=== PATIENT | female | born 1990 | race Caucasian/White ===

== ENCOUNTER → 2016-08-21 | Outpatient (CLI) | payer OTHER ==
[2016-08-21 12:20] LABS: BASO % 0.2 %; BASO ABS # 0.02 K/uL (0-0.2); COMPLETE YES; EOS % 1.8 %; HEMATOCRIT 40.1 % (37-47); IG% 0.3 %; LYMPH % 31.6 %; LYMPH ABS # 2.91 K/uL (1.2-3.4); MEAN CELL VOLUME 89.9 fL (80-100); MEAN CORPUSCULAR HEMOGLOBIN 31.2 pg (25-34); MEAN CORPUSCULAR HGB CONC 34.7 g/dl (32-36); MEAN PLATELET VOLUME 10.2 fL (7.4-10.4); MONO % 9.7 %; NEUT % 56.4 %; PLATELET COUNT 409 K/uL (130-400); RED BLOOD COUNT 4.46 M/uL (4.2-5.4); WHITE BLOOD COUNT 9.22 K/uL (4.8-10.8)
[2016-08-21 12:28] LABS: BLOOD UREA NITROGEN 11 mg/dl (7-18); CREATININE 0.74 mg/dl (0.60-1.20)
[2016-08-21 12:45] LABS: PREG INTERNAL NEGATIVE QC NEG CLEAR BACKGROUND; PREG INTERNAL POSITIVE QC POS CONTROL LINE
== END | disposition home or self-care (01) ==
LOC: C.LAB1850 11:08
PROVIDERS: ATTEND Obstetrics & Gynecology
DX: R10.9 Unspecified abdominal pain (principal); A74.9 Chlamydial infection, unspecified

== ENCOUNTER → 2016-08-21 | Outpatient (CLI) | payer OTHER ==
[2016-08-21 15:03] LABS: URINE APPEARANCE TURBID (CLEAR); URINE BILIRUBIN NEG (NEG); URINE COLOR DK YELLOW; URINE EPITHELIAL CELL AUTO >30 /lpf (0-5); URINE NITRITE NEG (NEG); URINE SPECIFIC GRAVITY 1.027 (1.000-1.030); UROBILINOGEN NEG (NEG)
[2016-08-21 15:09] LABS: MANUAL MICROSCOPIC REQUIRED? NO; REVIEW REQ? YES
[2016-08-24 01:32] LABS: CHLAMYDIA TRACH RNA*** NOT DETECTED (NOT DETECTED); GC (NEIS GONORRHOEAE)RNA** NOT DETECTED (NOT DETECTED)
== END | disposition home or self-care (01) ==
LOC: C.LABSPEC 13:58
PROVIDERS: ATTEND Obstetrics & Gynecology
DX: N12 Tubulo-interstitial nephritis, not specified as acute or chronic (principal); A74.9 Chlamydial infection, unspecified

== ENCOUNTER → 2016-08-24 | Outpatient (CLI) | payer OTHER ==
--- NOTE | 2016-08-24 14:54 | DIAGNOSTIC IMAGING REPORT ---
RENAL ULTRASOUND CLINICAL HISTORY: Abdominal pain. Pyelonephritis. COMPARISON STUDY: CT of the abdomen and pelvis February 22, 2015. TECHNIQUE: Sonography of the kidneys and the urinary bladder was performed. FINDINGS: The right kidney measures 12.6 x 4.5 x 4.8 cm and the left measures 11.9 x 4.4 x 5.1 cm. No calculi or masses were identified by sonography. Renal echogenicity, size and cortical thickness are normal. There is mild prominence of the right collecting system. No fluid collection is identified to suggest an abscess by sonography. Both ureteral jets were identified. IMPRESSION: 1. Mild right-sided collecting system dilatation. 2. Normal renal echogenicity, size and cortical thickness. No renal abscess. Electronically signed by: Conor Hayes M.D. 08/24/2016 2:53 PM Dictated Date/Time: 08/24/2016 2:51 PM
== END | disposition home or self-care (01) ==
LOC: C.ULTRBC 13:51
PROVIDERS: ATTEND Obstetrics & Gynecology
DX: R10.9 Unspecified abdominal pain (principal); N12 Tubulo-interstitial nephritis, not specified as acute or chronic

== ENCOUNTER → 2016-11-01 | Outpatient (CLI) | payer OTHER ==
[2016-11-05 14:52] LABS: CHLAMYDIA TRACH RNA*** NOT DETECTED (NOT DETECTED); GC (NEIS GONORRHOEAE)RNA** NOT DETECTED (NOT DETECTED)
== END | disposition home or self-care (01) ==
LOC: C.LABSPEC 14:00
PROVIDERS: ATTEND Physician Assistant
DX: A74.9 Chlamydial infection, unspecified (principal)

== ENCOUNTER → 2016-11-21 | Outpatient (CLI) | payer OTHER ==
[2016-11-23 13:59] LABS: CHLAMYDIA TRACH RNA*** NOT DETECTED (NOT DETECTED); GC (NEIS GONORRHOEAE)RNA** NOT DETECTED (NOT DETECTED)
== END | disposition home or self-care (01) ==
LOC: C.LAB1850 09:18
PROVIDERS: ATTEND Physician Assistant
DX: Z11.3 Encounter for screening for infections with a predominantly sexual mode of transmission (principal)

== ENCOUNTER → 2016-11-21 | Outpatient (CLI) | payer OTHER | END | disposition home or self-care (01) | LOC: C.PAPS 11:52 | PROVIDERS: ATTEND Physician Assistant | DX: Z12.4 Encounter for screening for malignant neoplasm of cervix (principal) ==

== ENCOUNTER → 2016-12-03 | Outpatient (CLI) | payer OTHER | END | disposition home or self-care (01) | LOC: C.LAB1850 15:38 | PROVIDERS: ATTEND Registered Nurse | DX: E03.9 Hypothyroidism, unspecified (principal) ==

== ENCOUNTER → 2017-10-02 | Outpatient (CLI) | payer OTHER ==
[2017-10-02 14:22] LABS: HEP C IGG 13 YRS+OLDER_RFLX NEG (NEG)
[2017-10-03 01:27] LABS: RAPID PLASMA REAGIN NONREACTIVE (NONREACT)
== END | disposition home or self-care (01) ==
LOC: C.LAB1850 11:20
PROVIDERS: ATTEND Physician Assistant
DX: N92.6 Irregular menstruation, unspecified (principal); Z11.3 Encounter for screening for infections with a predominantly sexual mode of transmission

== ENCOUNTER → 2017-11-15 | Outpatient (CLI) | payer OTHER ==
[2017-11-15 14:04] LABS: BASO % 0.3 %; BASO ABS # 0.04 K/uL (0-0.2); EOS % 4.4 %; EOS ABS # 0.54 K/uL (0-0.5); HEMATOCRIT 39.4 % (37-47); HEMOGLOBIN 13.5 g/dL (12.0-16.0); IG# 0.05 K/uL (0.00-0.02); LYMPH % 27.9 %; LYMPH ABS # 3.46 K/uL (1.2-3.4); MEAN CELL VOLUME 90.8 fL (80-100); MEAN CORPUSCULAR HEMOGLOBIN 31.1 pg (25-34); MEAN CORPUSCULAR HGB CONC 34.3 g/dl (32-36); MONO % 7.9 %; MONO ABS # 0.98 K/uL (0.11-0.59); NEUT % 59.1 %; NEUT ABS # 7.34 K/uL (1.4-6.5); PLATELET COUNT 471 K/uL (130-400); RED CELL DISTRIBUTION WIDTH CV 13.3 % (11.5-14.5); RED CELL DISTRIBUTION WIDTH SD 44.2 fL (36.4-46.3); WHITE BLOOD COUNT 12.41 K/uL (4.8-10.8)
[2017-11-15 14:28] LABS: ALBUMIN 3.7 gm/dl (3.4-5.0); ALT/SGPT 16 U/L (12-78); AST/SGOT 11 U/L (15-37); BLOOD UREA NITROGEN 11 mg/dl (7-18); CALCIUM 8.9 mg/dl (8.5-10.1); CARBON DIOXIDE 23 mmol/L (21-32); CREATININE 0.79 mg/dl (0.60-1.20); GLUCOSE 93 mg/dl (70-99); POTASSIUM 3.5 mmol/L (3.5-5.1); SODIUM 138 mmol/L (136-145)
[2017-11-15 14:39] LABS: ALKALINE PHOSPHATASE 46 U/L (45-117); TOTAL PROTEIN 7.6 gm/dl (6.4-8.2)
== END | disposition home or self-care (01) ==
LOC: C.LAB1850 12:43
PROVIDERS: ATTEND Internal Medicine
DX: E03.9 Hypothyroidism, unspecified (principal); D47.3 Essential (hemorrhagic) thrombocythemia; F32.9 Major depressive disorder, single episode, unspecified; G47.9 Sleep disorder, unspecified

== ENCOUNTER → 2017-11-27 | Outpatient (CLI) | payer OTHER ==
[~2017-11-27] MED LIST: CHOL500021 PO; CYAN500T13 PO; ERGO500037 PO; IBUP-1428 PO; LEVO50TA6 PO; NITR-5 PO; ONDA4TAB46 PO; PRT/20 PO; SERT50TA PO
== END | disposition home or self-care (01) ==
LOC: C.LABSPEC 15:47
PROVIDERS: ATTEND Physician Assistant
DX: N94.10 Unspecified dyspareunia (principal)

== ENCOUNTER → 2017-11-28 | Outpatient (CLI) | payer OTHER | END | disposition home or self-care (01) | LOC: C.LAB1850 16:10 | PROVIDERS: ATTEND Physician Assistant | DX: R39.9 Unspecified symptoms and signs involving the genitourinary system (principal) ==

== ENCOUNTER → 2017-12-12 | Day surgery (SDC) | payer OTHER ==
[2017-12-05 09:10] VITALS: Ht 160 cm; Wt 93.2 kg
[~2017-12-12] VITALS: Ht 160 cm; Wt 93.2 kg
[~2017-12-12] MED LIST changes: +LIDOCAINE HCL 2% 2 ML VIAL (20MG/ML) ONE; +PROPOFOL IV EMULSION 10 MG/ML 20 ML VIAL ONE; +SODIUM CHLORIDE 0.9% 500ML 500 ML IV ONE
--- NOTE | 2017-12-12 12:29 | Endo History and Physical ---
History & Physical Date of Service: December 12, 2017. Chief Complaint: Diarrhea Referring Physician: Dr Rice History of Present Illness 27 yo CF who presents for colonoscopy secondary to diarrhea. Past Surgical History Hx Cardiac Surgery: No Hx Internal Defibrillator: No Hx Pacemaker: No Hx Abdominal Surgery: No Hx of Implantable Prosthesis: No Hx Cancer Surgery: No Hx Thoracic Surgery: No Hx Orthopedic: No Hx Urinary Tract Surgery: No Family History None Social History Smoking Status: Current Every Day Smoker Hx Substance Use: No Hx Alcohol Use: No Allergies Coded Allergies: Oxycodone (Verified Adverse Reaction, Unknown, Nausea and constipation., ) Reported by PT. Current Medications Reported Home Medications Medications Dose Route/Sig Max Daily Dose Days Date Category Vitamin D3 (Cholecalciferol) 5,000 Unit Chw 1 Tab PO DAILY 12/05/17 Reported Vitamin D 45158 Unit (Ergocalciferol) 50,000 Unit Cap 1 Cap PO WK 28 12/05/17 Reported Zoloft (Sertraline HCl) 50 Mg Tab 1 Tab PO HS 30 12/05/17 Reported Protonix (Pantoprazole Sodium) 20 Mg Tab 20 Mg PO DAILY 12/05/17 Reported Zofran (Ondansetron HCl) 4 Mg Tab 4 Mg PO Q8 PRN 12/05/17 Reported Macrobid (Nitrofurantoin Macrocrystals) 100 Mg Cap 100 Mg PO BID 12/05/17 Reported Levothyroxine Sodium 50 Mcg Tab 1 Tab PO DAILY 30 12/05/17 Reported Motrin (Ibuprofen) 800 Mg Tab 800 Mg PO Q12 PRN 12/05/17 Reported Vitamin B12 500MCG (Cyanocobalamin) 500 Mcg Tab 1,000 Mcg PO DAILY 12/05/17 Reported Vital Signs Weight (Kilograms): 93.18 Height (Feet): 5 Height (Inches): 3 Date Time Temp Pulse Resp B/P (MAP) Pulse Ox O2 Delivery O2 Flow Rate FiO2 12/12/17 12:21 36.6 80 18 107/79 (88) 94 Room Air Physical Exam General Appearance: WD/WN, no apparent distress Respiratory/Chest: Auscultation: breath sounds normal Cardiovascular: Heart Auscultation: RRR Abdomen: Bowel Sounds: normal Inspection & Palpation: soft, non-distended, no tenderness, guarding & rebound Assessment and Plan Assessment: 27 yo CF who presents for colonoscopy secondary to diarrhea. Plan: Proceed with colonoscopy.
--- NOTE | 2017-12-12 12:56 | Discharge Instructions ---
Endoscopy Patient Instructions Date / Procedure(s) Performed December 12, 2017. Colonoscopy Allergy Information Coded Allergies: Oxycodone (Verified Adverse Reaction, Unknown, Nausea and constipation., ) Reported by PT. Discharge Date / Findings December 12, 2017. Random colon biopsies Stool studies collected Colon polyp Internal hemorrhoids Medication Instructions OK to resume all medications today as prescribed Reported Home Medications Medications Dose Route/Sig Max Daily Dose Days Date Category Vitamin D3 (Cholecalciferol) 5,000 Unit Chw 1 Tab PO DAILY 12/05/17 Reported Vitamin D 72766 Unit (Ergocalciferol) 50,000 Unit Cap 1 Cap PO WK 28 12/05/17 Reported Zoloft (Sertraline HCl) 50 Mg Tab 1 Tab PO HS 30 12/05/17 Reported Protonix (Pantoprazole Sodium) 20 Mg Tab 20 Mg PO DAILY 12/05/17 Reported Zofran (Ondansetron HCl) 4 Mg Tab 4 Mg PO Q8 PRN 12/05/17 Reported Macrobid (Nitrofurantoin Macrocrystals) 100 Mg Cap 100 Mg PO BID 12/05/17 Reported Levothyroxine Sodium 50 Mcg Tab 1 Tab PO DAILY 30 12/05/17 Reported Motrin (Ibuprofen) 800 Mg Tab 800 Mg PO Q12 PRN 12/05/17 Reported Vitamin B12 500MCG (Cyanocobalamin) 500 Mcg Tab 1,000 Mcg PO DAILY 12/05/17 Reported Provider Instructions Activity Restrictions - No exercising or heavy lifting for 24 hours. - Do not drink alcohol the day of the procedure. - Do not drive a car or operate machinery until the day after the procedure. - Do not make any important decisions or sign important papers in 24 hours after the procedure. Following Day: - Return to full activity which may include returning to work/school. Diet Start your diet with liquids and light foods (jello, soup, juice, toast). Then eat your usual diet if not nauseated. Treatment For Common After Affects For mild abdominal pain, bloating, or excessive gas: - Rest - Eat lightly - Lie on right side Follow-Up Information Follow-up with Dr Rice as scheduled Anesthesia Information What You Should Know You have had a procedure that required some medicine to reduce anxiety and discomfort. This treatment is called moderate sedation. After receiving the treatment, you may be sleepy, but you will be able to breathe on your own. The effects of the treatment may last for several hours. Follow these instructions along with Activity/Diet recommendations noted above: * Do NOT do anything where dizziness or clumsiness would be dangerous. * Rest quietly at home today, then you can be up and about tomorrow. * Have a responsible person stay with you the rest of today. * You may have had an I.V. today. If so, you may take the dressing off later today. Recommendations Call your doctor if: * Trouble breathing * Continuous vomiting for more than 24 hours * Temperature above 101 degrees * Severe abdominal pain or bloating * Pain not relieved by pain medicine ordered * There is increased drainage or redness from any incision * A large amount of rectal bleeding greater than 2-3 tablespoons. (If you had a polyp/s removed or have hemorrhoids, a small amount of blood - from the rectum is to be expected.) * You have any unanswered questions or concerns. IN THE EVENT OF A SERIOUS EMERGENCY, GO TO THE NEAREST EMERGENCY ROOM Your discharge instructions were prepared by provider Olegario Hillman. Patient Instructions Signature Page Jaimie House Patient (or Guardian) Signature/Date: I have read and understand the instructions given to me by my caregivers. Caregiver/RN/Doctor Signature/Date: The above-named patient and/or guardian has received patient instructions on this date. + Original Patient Signature Page (only) stays with chart. Please make copy for patient.
--- NOTE | 2017-12-12 13:03 | GI REPORT ---
Patient Name: Jaimie House Procedure Date: 12/12/2017 12:37 PM Date of : 1990 Admit Type: Outpatient Age: 27 Gender: Female Attending MD: Olegario Hillman DO Procedure: Colonoscopy Providers: Olegario Hillman DO Referring MD: Nanette Roblero Indications: Chronic diarrhea Medicines: Monitored Anesthesia Care Complications: No immediate complications. Estimated Blood Loss: Estimated blood loss: none. Procedure: Pre-Anesthesia Assessment: - Prior to the procedure, a History and Physical was performed, and patient medications and allergies were reviewed. The patient's tolerance of previous anesthesia was also reviewed. The risks and benefits of the procedure and the sedation options and risks were discussed with the patient. All questions were answered, and informed consent was obtained. Prior Anticoagulants: The patient has taken no previous anticoagulant or antiplatelet agents. ASA Grade Assessment: II - A patient with mild systemic disease. After reviewing the risks and benefits, the patient was deemed in satisfactory condition to undergo the procedure. After I obtained informed consent, the scope was passed under direct vision. Throughout the procedure, the patient's blood pressure, pulse, and oxygen saturations were monitored continuously. The Scope was introduced through the anus and advanced to the terminal ileum. The colonoscopy was performed without difficulty. The patient tolerated the procedure well. The quality of the bowel preparation was good. The terminal ileum, ileocecal valve, appendiceal orifice, and rectum were photographed. Findings: The perianal and digital rectal examinations were normal. A 5 mm polyp was found in the sigmoid colon. The polyp was sessile. The polyp was removed with a hot snare. Resection and retrieval were complete. Several random biopsies were obtained with cold forceps for histology in the entire colon. Fluid aspiration for stool studies was performed in the entire colon. Non-bleeding internal hemorrhoids were found during retroflexion. The hemorrhoids were small. Impression: - One 5 mm polyp in the sigmoid colon, removed with a hot snare. Resected and retrieved. - Non-bleeding internal hemorrhoids. - Several random biopsies were obtained in the entire colon. - Fluid aspiration was performed. Recommendation: - Resume previous diet. - Continue present medications. - Repeat colonoscopy for surveillance based on pathology results. - Return to primary care physician as previously scheduled. Olegario Hillman DO 12/12/2017 1:02:40 PM This report has been signed electronically. Note Initiated On: 12/12/2017 12:37 PM Number of Addenda: 0 I attest to the content of the Intraoperative Record and orders documented therein, exceptions below {[id number]}
--- NOTE | 2017-12-12 13:26 | Anesthesiology Progress Note ---
Anesthesia Post Op Note Date & Time December 12, 2017 at 13:26 Vital Signs Vital Signs Past 12 Hours Date Time Temp Pulse Resp B/P (MAP) Pulse Ox O2 Delivery O2 Flow Rate FiO2 12/12/17 13:13 85 18 101/70 (80) 94 Room Air 12/12/17 12:58 79 14 91/54 (66) 98 Room Air 12/12/17 12:21 36.6 80 18 107/79 (88) 94 Room Air Notes Mental Status: alert / awake / arousable, participated in evaluation Pt Amnestic to Procedure: Yes Nausea / Vomiting: adequately controlled Pain: adequately controlled Airway Patency, RR, SpO2: stable & adequate BP & HR: stable & adequate Hydration State: stable & adequate Anesthetic Complications: no major complications apparent
[2017-12-12 13:28] VITALS: BP 119/73; PULSE 77; TEMP 36.6; O2SAT 100
== END | disposition home or self-care (01) ==
LOC: C.GI 11:39
PROVIDERS: ATTEND Internal Medicine
DX: R19.7 Diarrhea, unspecified (principal); D12.5 Benign neoplasm of sigmoid colon; K64.8 Other hemorrhoids; F17.200 Nicotine dependence, unspecified, uncomplicated; Z88.5 Allergy status to narcotic agent

== ENCOUNTER → 2018-03-04 | Outpatient (CLI) | payer OTHER ==
[~2018-03-04] MED LIST changes: +ASPI-391 PO; +CEFD1CAP14 PO; -LIDOCAINE HCL 2% 2 ML VIAL (20MG/ML) ONE; +LYSI500T34 PO; +MEDR1INJ3 IM; -NITR-5 PO; +POTASSIUM PO; -PROPOFOL IV EMULSION 10 MG/ML 20 ML VIAL ONE; +RIZA10TA18 PO; -SODIUM CHLORIDE 0.9% 500ML 500 ML IV ONE; +TOPI50TA16 PO; +VITACAP26 PO; +ZINCCAP5 PO
--- NOTE | 2018-03-04 18:26 | DIAGNOSTIC IMAGING REPORT ---
CHEST 2 VIEWS ROUTINE HISTORY: 27 years-old Female R05 Productive [id number] acute productive cough with fever COMPARISON: Chest radiograph 03/03/2015 TECHNIQUE: PA and lateral views of the chest FINDINGS: Cardiomediastinal and hilar silhouettes are within normal limits. There is no pneumothorax, pleural effusion, focal airspace consolidation or overt pulmonary edema. Ventricular peritoneal shunt catheter is noted projecting over the right neck, right chest and right upper abdomen with visualized portions of the catheter appearing to be intact. The bones of the chest appear unremarkable. IMPRESSION: No acute process. The above report was generated using voice recognition software. It may contain grammatical, syntax or spelling errors. Electronically signed by: Estuardo Bhatti M.D. 03/04/2018 6:24 PM Dictated Date/Time: 03/04/2018 6:23 PM
== END | disposition home or self-care (01) ==
LOC: C.RAD1850 16:35
PROVIDERS: ATTEND Internal Medicine
DX: R50.9 Fever, unspecified (principal); R05 Cough

== ENCOUNTER → 2018-03-17 | Day surgery (SDC) | payer OTHER ==
[2018-03-11 10:38] VITALS: BMI 35.0
[~2018-03-17] VITALS: Ht 160 cm; Wt 91.8 kg
[~2018-03-17] MED LIST changes: +LIDOCAINE HCL 2% 2 ML VIAL (20MG/ML) ONE; +PROPOFOL IV EMULSION 10 MG/ML 20 ML VIAL ONE; +SODIUM CHLORIDE 0.9% 500ML 500 ML IV ONE
--- NOTE | 2018-03-17 11:05 | Endo History and Physical ---
History & Physical Date of Service: Mar 17, 2018. Chief Complaint: Diarrhea and Abdominal pain Referring Physician: Dr. Rice History of Present Illness 27 yo CF who presents for colonoscopy secondary to diarrhea and abdominal pain. Past Surgical History Hx Cardiac Surgery: No Hx Internal Defibrillator: No Hx Pacemaker: No Hx Abdominal Surgery: No Hx of Implantable Prosthesis: No Hx Post-Op Nausea and Vomiting: No Hx Cancer Surgery: No Hx Thoracic Surgery: No Hx Orthopedic: No Hx Urinary Tract Surgery: No Family History None Social History Smoking Status: Current Every Day Smoker Hx Substance Use: No Hx Alcohol Use: No Allergies Coded Allergies: Oxycodone (Verified Adverse Reaction, Unknown, Nausea and constipation., ) Reported by PT. Current Medications Reported Home Medications Medications Dose Route/Sig Max Daily Dose Days Date Category Dose Instructions L-Lysine (Lysine Hcl) 500 Mg Tab 500 Mg PO QAM 03/11/18 Reported [Potassium ] 99 Mg PO QAM 03/11/18 Reported Vitamin C (Vitamins C & E) 1 Cap Cap 1 Tab PO QAM 03/11/18 Reported Zn-50 (Zinc Gluconate) 50 Mg Cap 50 Mg PO QAM 03/11/18 Reported Maxalt (Rizatriptan Benzoate) 10 Mg Tab 10 Mg PO UD PRN 03/11/18 Reported Zofran (Ondansetron HCl) 4 Mg Tab 4 Mg PO Q8H PRN 03/11/18 Reported Omnicef (Cefdinir) 300 Mg Cap 300 Mg PO Q12H 03/11/18 Reported Topamax (Topiramate) 50 Mg Tab 50 Mg PO HS 03/11/18 Reported Excedrin Extra Strength (Whwgtxd-Yecvychmbgurq-Awnejmia) 1 Tab Tab 1 Tab PO Q4 PRN 01/06/18 Reported Depo-Provera Contraceptiv (Medroxyprogesterone Acetate (C) 150 Mg/Ml Inj 150 Mg IM Q3MO 01/06/18 Reported Vitamin D3 (Cholecalciferol) 5,000 Unit Chw 5,000 Units PO QAM 12/05/17 Reported Vitamin D 54154 Unit (Ergocalciferol) 50,000 Unit Cap 50,000 Units PO WK 28 12/05/17 Reported THURSDAYS Zoloft (Sertraline HCl) 50 Mg Tab 75 Mg PO HS 30 12/05/17 Reported Protonix (Pantoprazole Sodium) 20 Mg Tab 20 Mg PO QAM 12/05/17 Reported Levothyroxine Sodium 50 Mcg Tab 50 Mcg PO QAM 30 12/05/17 Reported Motrin (Ibuprofen) 800 Mg Tab 800 Mg PO Q12 PRN 12/05/17 Reported Vitamin B12 500MCG (Cyanocobalamin) 500 Mcg Tab 1,000 Mcg PO QAM 12/05/17 Reported Vital Signs Weight (Kilograms): 91.82 Height (Feet): 5 Height (Inches): 3 Physical Exam General Appearance: WD/WN, no apparent distress Respiratory/Chest: Auscultation: breath sounds normal Cardiovascular: Heart Auscultation: RRR Abdomen: Bowel Sounds: normal Inspection & Palpation: soft, non-distended, no tenderness, guarding & rebound Assessment and Plan Assessment: 27 yo CF who presents for colonoscopy secondary to diarrhea and abdominal pain. Plan: Proceed with colonoscopy.
[2018-03-17 11:16] VITALS: Ht 160 cm; Wt 91.8 kg
--- NOTE | 2018-03-17 12:12 | Discharge Instructions ---
Endoscopy Patient Instructions Date / Procedure(s) Performed Mar 17, 2018. Colonoscopy Allergy Information Coded Allergies: Oxycodone (Verified Adverse Reaction, Unknown, Nausea and constipation., ) Reported by PT. Discharge Date / Findings Mar 17, 2018. Random colon biopsies Stool studies collected Internal hemorrhoids Medication Instructions OK to resume all medications today as prescribed Reported Home Medications Medications Dose Route/Sig Max Daily Dose Days Date Category Dose Instructions L-Lysine (Lysine Hcl) 500 Mg Tab 500 Mg PO QAM 03/11/18 Reported [Potassium ] 99 Mg PO QAM 03/11/18 Reported Vitamin C (Vitamins C & E) 1 Cap Cap 1 Tab PO QAM 03/11/18 Reported Zn-50 (Zinc Gluconate) 50 Mg Cap 50 Mg PO QAM 03/11/18 Reported Maxalt (Rizatriptan Benzoate) 10 Mg Tab 10 Mg PO UD PRN 03/11/18 Reported Zofran (Ondansetron HCl) 4 Mg Tab 4 Mg PO Q8H PRN 03/11/18 Reported Omnicef (Cefdinir) 300 Mg Cap 300 Mg PO Q12H 03/11/18 Reported Topamax (Topiramate) 50 Mg Tab 50 Mg PO HS 03/11/18 Reported Excedrin Extra Strength (Jumrzyr-Kxaeinaopevoa-Kvdyxpvn) 1 Tab Tab 1 Tab PO Q4 PRN 01/06/18 Reported Depo-Provera Contraceptiv (Medroxyprogesterone Acetate (C) 150 Mg/Ml Inj 150 Mg IM Q3MO 01/06/18 Reported Vitamin D3 (Cholecalciferol) 5,000 Unit Chw 5,000 Units PO QAM 12/05/17 Reported Vitamin D 61181 Unit (Ergocalciferol) 50,000 Unit Cap 50,000 Units PO WK 28 12/05/17 Reported THURSDAYS Zoloft (Sertraline HCl) 50 Mg Tab 75 Mg PO HS 30 12/05/17 Reported Protonix (Pantoprazole Sodium) 20 Mg Tab 20 Mg PO QAM 12/05/17 Reported Levothyroxine Sodium 50 Mcg Tab 50 Mcg PO QAM 30 12/05/17 Reported Motrin (Ibuprofen) 800 Mg Tab 800 Mg PO Q12 PRN 12/05/17 Reported Vitamin B12 500MCG (Cyanocobalamin) 500 Mcg Tab 1,000 Mcg PO QAM 12/05/17 Reported Provider Instructions Activity Restrictions - No exercising or heavy lifting for 24 hours. - Do not drink alcohol the day of the procedure. - Do not drive a car or operate machinery until the day after the procedure. - Do not make any important decisions or sign important papers in 24 hours after the procedure. Following Day: - Return to full activity which may include returning to work/school. Diet Start your diet with liquids and light foods (jello, soup, juice, toast). Then eat your usual diet if not nauseated. Treatment For Common After Affects For mild abdominal pain, bloating, or excessive gas: - Rest - Eat lightly - Lie on right side Follow-Up Information Follow-up with DR. RUDD as scheduled Anesthesia Information What You Should Know You have had a procedure that required some medicine to reduce anxiety and discomfort. This treatment is called moderate sedation. After receiving the treatment, you may be sleepy, but you will be able to breathe on your own. The effects of the treatment may last for several hours. Follow these instructions along with Activity/Diet recommendations noted above: * Do NOT do anything where dizziness or clumsiness would be dangerous. * Rest quietly at home today, then you can be up and about tomorrow. * Have a responsible person stay with you the rest of today. * You may have had an I.V. today. If so, you may take the dressing off later today. Recommendations Call your doctor if: * Trouble breathing * Continuous vomiting for more than 24 hours * Temperature above 101 degrees * Severe abdominal pain or bloating * Pain not relieved by pain medicine ordered * There is increased drainage or redness from any incision * A large amount of rectal bleeding greater than 2-3 tablespoons. (If you had a polyp/s removed or have hemorrhoids, a small amount of blood - from the rectum is to be expected.) * You have any unanswered questions or concerns. IN THE EVENT OF A SERIOUS EMERGENCY, GO TO THE NEAREST EMERGENCY ROOM Your discharge instructions were prepared by provider Olegario Hillman. Patient Instructions Signature Page Jaimie House Patient (or Guardian) Signature/Date: I have read and understand the instructions given to me by my caregivers. Caregiver/RN/Doctor Signature/Date: The above-named patient and/or guardian has received patient instructions on this date. + Original Patient Signature Page (only) stays with chart. Please make copy for patient.
--- NOTE | 2018-03-17 12:19 | GI REPORT ---
Patient Name: Jaimie House Procedure Date: 03/17/2018 11:54 AM Date of : 1990 Admit Type: Outpatient Age: 27 Gender: Female Attending MD: Olegario Hillman DO Procedure: Colonoscopy Providers: Olegario Hillman DO Referring MD: Lisa Gilliland Indications: Epigastric abdominal pain, Chronic diarrhea Medicines: Monitored Anesthesia Care Complications: No immediate complications. Estimated Blood Loss: Estimated blood loss: none. Procedure: Pre-Anesthesia Assessment: - Prior to the procedure, a History and Physical was performed, and patient medications and allergies were reviewed. The patient's tolerance of previous anesthesia was also reviewed. The risks and benefits of the procedure and the sedation options and risks were discussed with the patient. All questions were answered, and informed consent was obtained. Prior Anticoagulants: The patient has taken aspirin, last dose was 6 days prior to procedure. ASA Grade Assessment: III - A patient with severe systemic disease. After reviewing the risks and benefits, the patient was deemed in satisfactory condition to undergo the procedure. After I obtained informed consent, the scope was passed under direct vision. Throughout the procedure, the patient's blood pressure, pulse, and oxygen saturations were monitored continuously. The scope was introduced through the anus and advanced to the terminal ileum. The colonoscopy was performed without difficulty. The patient tolerated the procedure well. The quality of the bowel preparation was good. The terminal ileum, the appendiceal orifice and the rectum were photographed. Findings: The perianal and digital rectal examinations were normal. Non-bleeding internal hemorrhoids were found during retroflexion. The hemorrhoids were Grade I (internal hemorrhoids that do not prolapse). Several random biopsies were obtained with cold forceps for histology in the entire colon. Fluid aspiration for stool studies was performed in the entire colon. Impression: - Non-bleeding internal hemorrhoids. - Several random biopsies were obtained in the entire colon. - Fluid aspiration was performed. Recommendation: - Resume previous diet. - Continue present medications. - Repeat colonoscopy for surveillance based on pathology results. - Return to primary care physician as previously scheduled. Olegario Hillman DO 03/17/2018 12:19:11 PM This report has been signed electronically. Note Initiated On: 03/17/2018 11:54 AM Number of Addenda: 0 I attest to the content of the Intraoperative Record and orders documented therein, exceptions below {[id number]}
[2018-03-17 12:45] VITALS: BP 95/57; PULSE 51; O2SAT 99
--- NOTE | 2018-03-17 15:12 | Anesthesiology Progress Note ---
Anesthesia Post Op Note Date & Time Mar 17, 2018 at 15:12 Vital Signs Pain Intensity: 0 Vital Signs Past 12 Hours Date Time Temp Pulse Resp B/P (MAP) Pulse Ox O2 Delivery O2 Flow Rate FiO2 03/17/18 12:45 51 16 95/57 (70) 99 Room Air 03/17/18 12:31 52 16 104/51 (68) 99 Room Air 03/17/18 12:16 66 16 90/60 (70) 96 Room Air 03/17/18 11:04 36.6 74 16 110/71 (84) 97 Room Air Notes Mental Status: alert / awake / arousable, participated in evaluation Pt Amnestic to Procedure: Yes Nausea / Vomiting: adequately controlled Pain: adequately controlled Airway Patency, RR, SpO2: stable & adequate BP & HR: stable & adequate Hydration State: stable & adequate Anesthetic Complications: no major complications apparent
== END | disposition home or self-care (01) ==
LOC: C.GI 10:20
PROVIDERS: ATTEND Internal Medicine
DX: R19.7 Diarrhea, unspecified (principal); R10.13 Epigastric pain; K64.8 Other hemorrhoids; F32.9 Major depressive disorder, single episode, unspecified; F17.200 Nicotine dependence, unspecified, uncomplicated; K21.9 Gastro-esophageal reflux disease without esophagitis; Z98.2 Presence of cerebrospinal fluid drainage device; Z88.5 Allergy status to narcotic agent